=== PATIENT | female | born 1985 | race Caucasian/White ===

== ENCOUNTER 2019-03-25 07:20 | Emergency (ER) | payer OTHER ==
[~2019-03-25] VITALS: Ht 165.1 cm; Wt 79.9 kg
[2019-03-25] MEDS ORDERED: PERIGUARD (07:27)
[2019-03-25] MEDS ORDERED: ONDANSETRON 4MG/2ML VIAL (J2405) IV ONE (08:30)
[2019-03-25] MEDS ORDERED: NS 1,000 ML IV ONE (08:30)
[2019-03-25] MEDS ORDERED: MORPHINE 4 MG/ML 1ML VIAL/SYRINGE (J2270) IV PRN (08:30)
[2019-03-25 08:47] LABS: BASO % 0.3 % (0.0-1.0); EOS % 0.2 % (0.0-3.0); HEMATOCRIT 41.9 % (36.0-47.0); HEMOGLOBIN 14.2 g/dl (12.0-15.5); LYMPH # 1.4 10^3/uL (1.5-4.5); LYMPH % 15.9 % (24.0-44.0); MEAN CORPUSCULAR HEMOGLOBIN 29.3 pg (27.0-33.0); MEAN CORPUSCULAR HGB CONC 33.9 g/dl (32.0-36.5); MEAN CORPUSCULAR VOLUME 86.4 fl (80.0-96.0); MONO # 0.5 10^3/uL (0.0-0.8); MONO % 5.9 % (0.0-5.0); NEUTROPHILS # 6.9 10^3/uL (1.8-7.7); NEUTROPHILS % 77.4 % (36.0-66.0); PLATELET COUNT, AUTOMATED 273 10^3/uL (150-450); RED BLOOD COUNT 4.85 10^6/uL (4.00-5.40); WHITE BLOOD COUNT 8.9 10^3/uL (4.0-10.0)
[2019-03-25 08:57] LABS: ALBUMIN 4.3 GM/DL (3.2-5.2); ALT/SGPT 30 U/L (12-78); AMYLASE 34 U/L (25-115); BILIRUBIN,DIRECT 0.1 MG/DL (0.0-0.2); BILIRUBIN,TOTAL 0.5 MG/DL (0.2-1.0); BLOOD UREA NITROGEN 13 MG/DL (7-18); CALCIUM LEVEL 9.9 MG/DL (8.5-10.1); CARBON DIOXIDE LEVEL 26 MEQ/L (21-32); CHLORIDE LEVEL 104 MEQ/L (98-107); CREATININE FOR GFR 0.82 MG/DL (0.55-1.30); GLOMERULAR FILTRATION RATE > 60.0 (>60); GLUCOSE, FASTING 115 MG/DL (70-100); LIPASE 118 U/L (73-393); POTASSIUM SERUM 4.1 MEQ/L (3.5-5.1); SODIUM LEVEL 138 MEQ/L (136-145); TOTAL PROTEIN 7.8 GM/DL (6.4-8.2)
--- NOTE | 2019-03-25 09:25 | REP ---
Clinical: Acute abdominal pain. Technique: Brannon scale ultrasound using curved array transducer. Findings: Gallbladder demonstrates layering sludge and gravel without wall thickening or pericholecystic fluid. No sonographic Arreola's sign was elicited. No biliary ductal dilatation is appreciated and the common bile duct measures 5.0 mm diameter. Liver demonstrates mild fatty infiltration without focal hepatic lesion identified. Visualized portions of the pancreas are unremarkable. The right kidney is normal in reniform shape without hydronephrosis and measures 10.8 x 5.1 x 4.5 cm. No ascites. Impression: Cholelithiasis without sonographic evidence for acute cholecystitis. Electronically Signed by Kyle Casanova MD 03/25/2019 09:16 A
[2019-03-25] MEDS ORDERED: NORCO 5/325MG TABLET (BULK FOR ED) PO ONE (10:15)
[2019-03-25 10:23] VITALS: BP 112/55
[2019-03-25] MEDS ORDERED: PERC5TAB12 PO (10:24)
--- NOTE | 2019-03-25 21:02 | ECGEPIP ---
[facility] - ED Test Date: 2019-03-25 Pat Name: SOLANGE LOPEZ Department: Room: - Gender: Female [employer]: : [id number] Requested By: Nina Dolan PA-C Order Number: [id number] Reading MD: Allyn Bowden Measurements Intervals [employer] Rate: 61 P: 35 ND: 141 QRS: 70 QRSD: 98 T: 66 QT: 438 QTc: 441 Interpretive Statements SINUS RHYTHM WITH SINUS ARRHYTHMIA NO PRIOR FOR COMPARISON Electronically Signed on 03-25-2019 21:02:25 EDT by Allyn Bowden
== END 2019-03-25 10:36 | disposition home or self-care (01) ==
LOC: M ED 07:20
DX: K80.70 Calculus of gallbladder and bile duct without cholecystitis without obstruction (principal)
CPT/HCPCS: 76705; 80048; 80076; 82150; 83690; 85025; 93005; 96374; 96375; 99284; J2270; J2405